=== PATIENT | male | born 1980 | race Caucasian/White ===

== ENCOUNTER → 2024-03-05 | Outpatient (CLI) | payer OTHER ==
--- NOTE | 2024-03-05 15:36 | XR ---
EXAMINATION TYPE: XR ankle complete LT DATE OF EXAM: 03/05/2024 COMPARISON: None HISTORY: Twisting injury TECHNIQUE: 3 view left ankle FINDINGS: Ankle mortise is intact. Soft tissues are normal. No acute fracture or dislocation is evide nt. Joint spaces appear preserved. Follow up exams can be performed 7-10 days from acute trauma for continued pain IMPRESSION: 1. No acute osseous abnormalities left ankle
== END | disposition home or self-care (01) ==
LOC: RADXRMAIN 14:35
PROVIDERS: ATTEND Emergency Medicine
DX: S93.402A Sprain of unspecified ligament of left ankle, initial encounter (principal); S86.002A Unspecified injury of left Achilles tendon, initial encounter

== ENCOUNTER → 2024-03-17 | Outpatient (CLI) | payer OTHER ==
--- NOTE | 2024-03-17 14:13 | MR ---
MRI left ankle without contrast HISTORY: Left ankle pain and swelling secondary to injury which occurred 5 weeks ago. COMPARISON: None TECHNIQUE: Multiecho multiplanar images left ankle were obtained. FINDINGS: There is no bone contusion or fracture. No joint effusion. Sinus tarsi is normal. The flexor, extensor and peroneal tendons and tendon sheaths are normal. There is a tear of the anterior talofibular ligament. There is mild thickening and abnormal signal intensity within the tendon a few centimeters proximal t o its insertion which could represent mild tendinosis. IMPRESSION: 1. Tear of the anterior talofibular ligament is strongly suspected. 2. Mild tendinosis of the Achilles tendon is suspected.
== END | disposition home or self-care (01) ==
LOC: RADMRIMAIN 09:56
PROVIDERS: ATTEND Emergency Medicine
DX: S93.402A Sprain of unspecified ligament of left ankle, initial encounter (principal); S86.002A Unspecified injury of left Achilles tendon, initial encounter